=== PATIENT | male | born 1990 | race Caucasian/White ===

== ENCOUNTER 2022-09-18 15:38 | Emergency (ER) | payer OTHER ==
[~2022-09-18] VITALS: Ht 172.7 cm; Wt 79.5 kg
[2022-09-18 17:18] VITALS: BP 142/70
== END 2022-09-19 02:16 | disposition home or self-care (01) ==
LOC: EMS 15:43
DX: S06.0X0A Concussion without loss of consciousness, initial encounter (principal); X58.XXXA Exposure to other specified factors, initial encounter; Y93.89 Activity, other specified; Y92.89 Other specified places as the place of occurrence of the external cause; Y99.8 Other external cause status
CPT/HCPCS: 99282; Z7502